=== PATIENT | female | born 1990 | race Caucasian/White ===

== ENCOUNTER 2016-11-27 00:54 | Inpatient (IN) | payer MEDICAID ==
[~2016-11-27] VITALS: Ht 157.5 cm; Wt 67.4 kg
[~2016-11-27 00:54] MED LIST: IBUPROFEN600 MG PO; PERCOCET 5-3251 TAB PO; PRENATAL COMPLE1 TAB
[2016-11-27 03:31] LABS: APPEARANCE CLEAR (CLEAR); COLOR YELLOW (YELLOW); LEUKOCYTE ESTERASE NEGATIVE (NEGATIVE); NITRITE NEGATIVE (NEGATIVE); PH 6.5 (5.0-6.0); SPECIFIC GRAVITY 1.015 (1.005-1.020)
[2016-11-27 03:32] LABS: BILIRUBIN NEGATIVE (NEGATIVE); GLUCOSE NEGATIVE (NEGATIVE); KETONE SMALL mg/dL (NEGATIVE); PROTEIN NEGATIVE (NEGATIVE); UROBILINOGEN NORMAL (NORMAL)
[2016-11-27 04:47] LABS: UDS - AMPHET NEGATIVE QUAL (NEGATIVE); UDS - BARB NEGATIVE QUAL (NEGATIVE); UDS - BENZO NEGATIVE QUAL (NEGATIVE); UDS - COCAINE NEGATIVE QUAL (NEGATIVE); UDS - METH NEGATIVE QUAL (NEGATIVE); UDS - OPIATE NEGATIVE QUAL (NEGATIVE); UDS - PCP NEGATIVE QUAL (NEGATIVE); UDS - THC NEGATIVE QUAL (NEGATIVE)
[2016-11-27] MEDS ORDERED: PRENATAL COMPLE1 TAB PO (05:14)
[2016-11-27 05:16] VITALS: BP 112/63; Ht 157.5 cm; Wt 67.4 kg
[2016-11-27 06:03] LABS: HEMATOCRIT 37.5 % (36.0-48.0); HEMOGLOBIN 12.5 g/dL (12-16); MCH 28.8 pg (26.0-34.0); MCHC 33.3 g/dL (31.0-37.0); MCV 86.4 fL (80.0-100.0); MEAN PLATELET VOLUME 12.1 fL (7.4-10.4); RBC 4.34 10x6/uL (4.00-5.40); RDW 13.8 % (11.5-14.5); WBC 13.8 10x3/uL (4.8-10.8)
[2016-11-27 19:12] VITALS: BP 134/79
--- NOTE | 2016-11-27 19:12 | NUR ---
SITTING ON SIDE OF BED ON PHONE. CHEERFUL. FOB SLEEPING ON SOFA. REPORTS PAIN A 0 OF 10 ON PAIN SCALE. SALINE LOCK NOTED IN LT FOREARM. NO REDNESS NOR EDEMA NOTED AT IV SITE. FUNDUS FIRM U/2 AND LOCHIA RUBRA MOD. ICE CAP NOTED TO PERINEAL AREA. EDEMA NOTED AT LABIAL AREA. BREATH SOUNDS CLEAR AND BOWEL SOUNDS ACTIVE. SKIN WARM AND DRY. STATES SHE VOIDED WITHOUT DIFFICULTY EARLIER AND HAS BEEN WALKING AROUND IN ROOM. DENIES ANY NEEDS. MEAL TRAY REMOVED FROM ROOM WITH 100% CONSUMED.
--- NOTE | 2016-11-27 19:55 | NUR ---
SITTING UP IN BED HOLDING . REQUESTED HELP WITH . INFORMED NBN STAFF OF SAME. DENIES ANY FURTHER NEEDS. FOB SLEEPING ON SOFA.
--- NOTE | 2016-11-27 21:15 | NUR ---
PT MEDICATED FOR C/O 5/10 CRAMPING WITH MOTRIN 600MG. SEE E-MAR FOR DOCUMENTATION. RAND COLEMAN
--- NOTE | 2016-11-27 21:25 | NUR ---
PT TRANSFERRED TO ROOM 1278 VIA W/C. S/O TRANSPORTED IN OPEN CRIB. TOWELS, WASHCLOTHS, TOILETRIES PROVIDED FOR SHOWER. RAND COLEMAN
--- NOTE | 2016-11-27 22:31 | NUR ---
MILK OF MAG ADMINISTERED AT THIS TIME. PT REPORTS PAIN IS BETTER NOW AT 2/10. FRESH ICE WATER AND EXTRA PILLOWS PROVIDED PER PT REQUEST. RAND COLEMAN
--- NOTE | 2016-11-28 00:20 | NUR ---
ROOM CHECK, PT HOLDING AND LOVING ON , JUST FINISHED FEEDING. DENIES NEEDS/PAIN AT THIS TIME. RAND COLEMAN
--- NOTE | 2016-11-28 02:30 | NUR ---
ROOM CHECK, PT RESTING WITH EYES CLOSED. AWAKENS EASILY TO VERBAL STIMULI. INFORMED THIS RN TAKING INFANT TO NS FOR WEIGHT AND VS CHECK. REQUESTED PAIN MEDICATION BEFORE SHE BEGINS . RAND COLEMAN
--- NOTE | 2016-11-28 03:34 | NUR ---
ROOM CHECK, PT AWAKE AND ALERT. MEDICATED WITH PERCOCET 5/325 FOR C/O PAIN 01/05. INFANT IN ARMS. DENIES NEEDS AT THIS TIME. RAND COLEMAN
--- NOTE | 2016-11-28 04:50 | NUR ---
PT RINGS CL. THIS RN TO BEDSIDE. PT ASKING FOR RN TO INFORM THAT SHE'S DONE FEEDING . Denita BAPTISTE RN INFORMED OF INFANT FINISHED FEEDING. Denita BAPTISTE WILL RETRIEVE FOR HEARING SCREEN. PT DENIES PAIN OR NEEDS AT THIS TIME.
[2016-11-28 06:00] LABS: BASOPHILS 0.1 % (0.0-2.0); EOSINOPHILS 0.9 % (0-7); HEMATOCRIT 34.8 % (36.0-48.0); HEMOGLOBIN 11.6 g/dL (12-16); IMMATURE GRANULOCYTES 0.5 % (0-5); LYMPHOCYTES 14.9 % (15-50); MCH 28.7 pg (26.0-34.0); MCHC 33.3 g/dL (31.0-37.0); MCV 86.1 fL (80.0-100.0); MEAN PLATELET VOLUME 11.4 fL (7.4-10.4); MONOCYTES 7.3 % (2-11); NEUTROPHILS 76.3 % (40-80); PLATELET COUNT 156 10x3/uL (130-400); RBC 4.04 10x6/uL (4.00-5.40); RDW 13.7 % (11.5-14.5)
[2016-11-28 06:04] LABS: WBC 18.6 10x3/uL (4.8-10.8)
--- NOTE | 2016-11-28 06:23 | NUR ---
ROUNDS MADE, PT RESTING WITH EYES CLOSED. RESP EVEN AND UNLABORED. RAND COLEMAN
--- NOTE | 2016-11-28 06:58 | NUR ---
ASSUME CARE OF THIS PATIENT AFTER RECEIVING REPORT. TO BEDSIDE, SLEEPING WITH IN ARMS, AROUSED EASILY AND INSTRUCTED INFANT NEEDS TO BE IN CRIB IF SHE IS SLEEPING. INFANT TO CRIB. ENCOURAGED PATIENT TO CONTINUE TO REST. WILL COMPLETE ASSESSMENT AFTER PT IS AWAKE AND BREAKFAST. VISITOR SLEEPING ON COUCH. SIDE RAILS UP X 2, CALL LIGHT IN REACH.
[2016-11-28 07:26] LABS: RAPID PLASMA REAGIN Non Reactive (Non Reactive)
--- NOTE | 2016-11-28 07:42 | NUR ---
CURRENTLY INFANT. SAYS SHE HAS ALREADY RECEIVED THE TDAP VACCINATION. NO REQUESTS AT THIS TIME. FOB IN ROOM.
[2016-11-28 07:57] VITALS: BP 133/75
[2016-11-28] MEDS ORDERED: IBUPROFEN600 MG PO (08:01)
[2016-11-28] MEDS ORDERED: PERCOCET 5-3251 TAB PO (08:01)
--- NOTE | 2016-11-28 08:03 | NUR ---
DR GRACE VISITED. NEW ORDERS RECEIVED FOR DC HOME.
--- NOTE | 2016-11-28 08:25 | NUR ---
SHIFT ASSESSMENT COMPLETED. SEE SHIFT ASSESSMENT. IN ARMS, FOB IN ROOM. FRESH ICE WATER GIVEN. DENIES NEEDING ANYTHING FOR PAIN. TO CALL WHEN READY FOR SHOWER. VERBALIZED UNDERSTANDING.
--- NOTE | 2016-11-28 09:00 | NUR ---
SITTING UP IN BED TALKING ON PHONE. FOB IN ROOM, IN ARMS. NO REQUESTS.
--- NOTE | 2016-11-28 10:09 | NUR ---
CURRENTLY . DENIES NEEDING ANYTHING AT THIS TIME. VISITORS X 2 IN ROOM.
--- NOTE | 2016-11-28 11:14 | NUR ---
SITTING IN BED WITH IN ARMS. REQUESTED MOTRIN FOR C/O 3-4/10 CRAMPING AND PERINEAL BURNING. INSTRUCTED ON USE OF EPIFOAM WITH TUCKS FOR RELIEF OF DISCOMFORT. VERBALIZED UNDERSTANDING. PLANS TO SHOWER "IN A FEW MINUTES". SIDE RAILS UP X 2, CALL LIGHT IN REACH.
--- NOTE | 2016-11-28 11:51 | NUR ---
FINISHED TAKING SHOWER. SAYS HER PAIN IS GETTING BETTER "ABOUT A 2 1/2" DENIES NEEDING ANYTHING AT THIS TIME. INFANT AND FOB IN ROOM.
--- NOTE | 2016-11-28 13:10 | NUR ---
SITTING UP IN BED DRESSED AND READY TO GO HOME. INFANT IN ROOM. FOB PRESENT. WILL COMPLETE DC INSTRUCTIONS IN PREPARATION FOR DC.
--- NOTE | 2016-11-28 14:13 | NUR ---
COMPLETED DC INSTRUCTIONS TO INCLUDE VERBAL AND WRITTEN INFORMATION ON ROUTINE CARE, PP DEPRESSION, S&S INFECTION, BREASTCARE AND , COMMUNITY RESOURCES, MEDICATION ADMINISTRATION AND FOLLOW-UP. REQUESTED SOMETHING FOR SORE NIPPLES, LANOLIN GIVEN AND BREAST SOTOMAYOR. DISCUSSED RELIEF MEASURES AND PREVENTATIVE MEASURES FOR NIPPLE SORENESS. VERBALIZED UNDERSTANDING. NURSERY NOTIFIED THAT MOTHER DC COMPLETED.
--- NOTE | 2016-11-28 15:32 | NUR ---
SITTING ON EDGE OF BED WAITING ON INFANT DC. IN NURSERY, FOB IN ROOM.
--- NOTE | 2016-11-28 16:28 | NUR ---
DC TO CAR VIA WHEELCHAIR WITH INFANT IN CARSEAT. FOB DRIVING. REMOVED ALL BELONGINGS FROM ROOM HAS RX X2 AND DC INSTRUCTIONS.
== END 2016-11-28 16:28 | disposition home or self-care (01) | DRG 775 ==
LOC: D.LDO 00:54 → D.LD 04:21
PROVIDERS: Obstetrics & Gynecology; ADMIT Specialist
PROC: 10E0XZZ Delivery of Products of Conception, External Approach (ICD-10-PCS; principal; 2016-11-27)
PROC: 0HQ9XZZ Repair Perineum Skin, External Approach (ICD-10-PCS; 2016-11-27)
DX: O70.0 First degree perineal laceration during delivery (principal); Z3A.38 38 weeks gestation of pregnancy; Z37.0 Single live birth; J45.909 Unspecified asthma, uncomplicated; Z91.040 Latex allergy status